=== PATIENT | male | born 1985 | race Two or more races ===

== ENCOUNTER 2017-05-31 09:48 | Emergency (ER) | payer SELFPAY ==
[2017-05-31 09:55] VITALS: RESP 18
--- NOTE | 2017-05-31 10:01 | CPEKG ---
Heart Rate: 112 RR Interval: 536 P-R Interval: 144 QRSD Interval: 112 QT Interval: 360 QTC Interval: 492 P [place]: 34 QRS [place]: 60 T Wave [place]: 11 EKG Severity - ABNORMAL ECG - EKG Impression: SINUS TACHYCARDIA EKG Impression: NONSPECIFIC INTRAVENTRICULAR CONDUCTION DELAY Electronically Signed By: Jemma Su 31-May-2017 15:06:50
--- NOTE | 2017-05-31 10:04 | EDPHY ---
H & P Stated Complaint: l cp since last night Time Seen by Provider: 05/31/17 10:02 HPI/ROS: HPI: This is a 32-year-old male presents with Chief Complaint: left cp since last night Location: Epigastric, left upper quadrant, left lateral anterior chest Quality: Pain Duration: Since 1:00 a.m. this morning Signs and Symptoms: no shortness of breath at rest, no shortness of breath on exertion, no cough, + chest pain, no palpitations, no lower extremity edema, no wheezing, no orthopnea, no paroxysmal nocturnal dyspnea, no fever, no injury/ trauma, no hemoptysis, + sweating, + nausea, no vomiting, no diarrhea Timing: Sudden, constant Severity: 710 Context: Patient is a former smoker, generally healthy and does not take regular medications, reports that he was tossing and turning last night and woke up around 1:00 a.m. with burning sensation in his epigastric/left upper quadrant/left lateral anterior chest area, that was 7/10, nonradiating in nature , and has remained constant for the last 8 hr. It is accompanied by cardiac awareness, anxiety, nausea, and sweating. Patient denies any recent long distance travel. He does report some anxiety history and increased stress. Due to this he drinks several beers last night but did not eat any dinner. No prior cardiac history. Denies familial cardiac disease. He denies NSAID use and food sensitivity to spicy or fried. Right-hand dominant. Denies any heavy lifting/injury. Modifying Factors: None Comment: ROS: see HPI Constitutional: No fever, no chills, no weight loss Eyes: No blurred vision Respiratory: No shortness of breath, no cough Cardiovascular: + chest pain, no palpitations, no lower extremity edema Gastrointestinal: + nausea, no vomiting, no diarrhea Genitourinary: No dysuria Extremities: No myalgias Neurologic: No weakness, no numbness Skin: No rashes Hematologic: No bruising, no bleeding MEDICAL/SURGICAL/SOCIAL HISTORY: Medical history: Generally healthy. Does not take any regular medications. Surgical history: Denies Social history: Employed. CONSTITUTIONAL: Anxious adult male, nontoxic in appearance and calm and cooperative, awake and alert, no obvious distress HEENT: Atraumatic and normocephalic, PERRL, EOMI. Tympanic membranes clear. Oropharynx clear, no exudate and moist pink mucosa. Airway patent. No lymphadenopathy. No meningismus. Cardiovascular: Normal S1/S2, sinus tachycardia, regular rhythm, without murmur rub or gallop. PULMONARY/CHEST: Symmetrical and reproducible anterior chest tenderness. Clear to auscultation bilaterally. Good air movement. No accessory muscle usage. ABDOMEN: Soft, nondistended, protuberant, epigastric and left upper quadrant tenderness, no rebound, no guarding, no peritoneal signs, no masses or organomegaly. No CVAT. EXTREMITIES: 2/2 pulses, strength 5/5, no deformities, no clubbing, no cyanosis or edema. NEUROLOGICAL: no focal neuro deficits. GCS 15. SKIN: Warm and dry, no erythema. no rash. Good capillary refill. Source: Patient Exam Limitations: No limitations - Personal History Current Tetanus/Diphtheria Vaccine: No - Medical/Surgical History Hx Asthma: No Hx Chronic Respiratory Disease: No Hx Diabetes: No Hx Cardiac Disease: No Hx Renal Disease: No Hx Cirrhosis: No Hx Alcoholism: No Hx HIV/AIDS: No Hx Splenectomy or Spleen Trauma: No Other PMH: denies - Social History Smoking Status: Former smoker Constitutional: Initial Vital Signs Temperature (C) 36.5 C 05/31/17 09:53 Heart Rate 98 05/31/17 09:53 Respiratory Rate 18 05/31/17 09:53 Blood Pressure 158/103 H 05/31/17 09:53 O2 Sat (%) 96 05/31/17 09:53 O2 Delivery Mode Room Air Allergies/Adverse Reactions: No Known Allergies Allergy (Unverified 05/31/17 09:52) Home Medications: Medication Instructions Recorded Pantoprazole Sodium [Protonix 40mg 40 mg PO DAILY #20 tab 05/31/17 (*)] Sucralfate [Carafate 1 GM (*)] 1 gm PO ACHS #28 tab 05/31/17 Medical Decision Making - Diagnostics EKG Interpretation: 12 lead EKG: Indication: Chest pain, abdominal pain Rhythm: Sinus tachycardia, rate 112 beats per minute [place]: Normal Intervals: Normal QRS: Normal ST segments: Normal INTERPRETATION: No acute ischemic changes The 12 lead EKG was interpreted by myself and with attending. Imaging Results: Imaging Impressions Abdomen X-Ray 05/31/17 10:03 Impression: No localizing features within the chest or abdomen. ED Course/Re-evaluation: EKG, acute abdomen series, IV fluids, labs ordered Vital signs reviewed upon arrival in show tachycardia; given 1 L normal saline and IV morphine with moderate relief of pain EKG shows no acute ischemic changes or arrhythmia Labs reviewed and show no signs of PE/ACS/anemia/electrolyte imbalance/elevated LFTs Chest x-ray my read shows no signs of effusion, opacity, pneumothorax, widened mediastinum Abdominal x-ray shows no signs of obstruction; does show nonobstructive bowel gas pattern mode over prominent in the left upper quadrant which is the area of discomfort for patient. 1245: Patient reports transient relief of symptoms with Ativan. Patient now admits to drinking consistently between 6 and 10 beers daily. He denies any alcohol withdrawal seizures. Offer to discharge him to the [facility] but he has politely refused. Sec troponin within normal limits. It appears that patient is suffering from alcoholic gastritis. This patient was seen under the supervision of my secondary supervising physician. I evaluated care for this patient independently. Differential Diagnosis: Chest pain including but not limited to myocardial ischemia, pulmonary embolus, chest wall pain, pleural inflammation and pulmonary infectious causes. - Data Points Laboratory Results: Laboratory Results 05/31/17 10:02 05/31/17 10:02 05/31/17 05/31/17 05/31/17 12:59 10:02 10:02 WBC RBC Hgb Hct MCV MCH MCHC RDW Plt Count MPV Neut % (Auto) Lymph % (Auto) [place] % (Auto) Eos % (Auto) Baso % (Auto) Nucleat RBC Rel Count Absolute Neuts (auto) Absolute Lymphs (auto) Absolute Monos (auto) Absolute Eos (auto) Absolute Basos (auto) Absolute Nucleated RBC Immature Gran % Immature Gran # D-Dimer < 0.27 ug/mLFEU ug/mLFEU (0.00-0.50) Sodium 145 mEq/L mEq/L (135-145) Potassium 3.7 mEq/L mEq/L (3.5-5.2) Chloride 101 mEq/L mEq/L (97-110) Carbon Dioxide 21 mEq/l L mEq/l (22-31) Anion Gap 23 mEq/L H mEq/L (8-16) BUN 10 mg/dL mg/dL (7-23) Creatinine 0.8 mg/dL mg/dL (0.7-1.3) Estimated GFR > 60 Glucose 118 mg/dL H mg/dL (70-100) Calcium 10.5 mg/dL H mg/dL (8.5-10.4) Troponin I < 0.012 ng/mL ng/mL < 0.012 ng/mL ng/mL (0.000-0.034) (0.000-0.034) 05/31/17 10:02 WBC 7.64 10^3/uL 10^3/uL (3.80-9.50) RBC 4.98 10^6/uL 10^6/uL (4.40-6.38) Hgb 15.7 g/dL g/dL (13.7-17.5) Hct 44.3 % % (40.0-51.0) MCV 89.0 fL fL (81.5-99.8) MCH 31.5 pg pg (27.9-34.1) MCHC 35.4 g/dL g/dL (32.4-36.7) RDW 11.8 % % (11.5-15.2) Plt Count 276 10^3/uL 10^3/uL (150-400) MPV 9.0 fL fL (8.7-11.7) Neut % (Auto) 62.1 % % (39.3-74.2) Lymph % (Auto) 28.4 % % (15.0-45.0) [place] % (Auto) 8.5 % % (4.5-13.0) Eos % (Auto) 0.3 % L % (0.6-7.6) Baso % (Auto) 0.4 % % (0.3-1.7) Nucleat RBC Rel Count 0.0 % % (0.0-0.2) Absolute Neuts (auto) 4.75 10^3/uL 10^3/uL (1.70-6.50) Absolute Lymphs (auto) 2.17 10^3/uL 10^3/uL (1.00-3.00) Absolute Monos (auto) 0.65 10^3/uL 10^3/uL (0.30-0.80) Absolute Eos (auto) 0.02 10^3/uL L 10^3/uL (0.03-0.40) Absolute Basos (auto) 0.03 10^3/uL 10^3/uL (0.02-0.10) Absolute Nucleated RBC 0.00 10^3/uL 10^3/uL (0-0.01) Immature Gran % 0.3 % % (0.0-1.1) Immature Gran # 0.02 10^3/uL 10^3/uL (0.00-0.10) D-Dimer Sodium Potassium Chloride Carbon Dioxide Anion Gap BUN Creatinine Estimated GFR Glucose Calcium Troponin I Medications Given: Discontinued Medications Al Hydroxide/Mg Hydroxide (Maalox Susp) 30 ml PO ONCE ONE Stop: 05/31/17 10:46 Last Admin: 05/31/17 10:50 Dose: 30 ml Hyoscyamine Sulfate (Levsin, Hyomax-Sl) 0.25 mg PO ONCE ONE Stop: 05/31/17 10:46 Last Admin: 05/31/17 10:50 Dose: 0.25 mg Sodium Chloride (Ns) 1,000 mls @ 0 mls/hr IV EDNOW ONE; Wide Open PRN Reason: Protocol Stop: 05/31/17 10:10 Last Admin: 05/31/17 10:50 Dose: 1,000 mls Lidocaine (Lidocaine 2% Viscous) 15 ml PO ONCE ONE Stop: 05/31/17 10:46 Last Admin: 05/31/17 10:50 Dose: 15 ml Lorazepam (Ativan Injection) 1 mg IVP EDNOW ONE Stop: 05/31/17 10:46 Last Admin: 05/31/17 10:51 Dose: 1 mg Lorazepam (Ativan Injection) 2 mg IVP EDNOW ONE Stop: 05/31/17 13:07 Last Admin: 05/31/17 13:10 Dose: 2 mg Departure - Departure Disposition: Home, Routine, Self-Care Clinical Impression: Alcoholism, Hypertension, essential, Atypical chest pain Alcoholic gastritis without bleeding Qualifiers: Chronicity: acute Qualified Code(s): K29.20 - Alcoholic gastritis without bleeding Condition: Good Instructions: Gastritis (ED), Abuse of Alcohol (ED), Alcohol Dependence (ED) Additional Instructions: Please start taking Protonix daily and Carafate 30 min before meals and at bedtime x1 week. Refrain from drinking alcohol. Your blood pressure is elevated today; eat a low-sodium diet. Please follow up with primary care provider in the next 2-3 days to discuss gastritis and elevated blood pressure. You may need to start blood pressure medication for tighter blood pressure control. Referrals: Julio Lunsford MD, FACG [Medical Doctor] - As per Instructions [facility],. [Clinic] - As per Instructions Prescriptions: Pantoprazole Sodium [Protonix 40mg (*)] 40 mg PO DAILY #20 tab Sucralfate [Carafate 1 GM (*)] 1 gm PO ACHS #28 tab
[2017-05-31] MEDS ORDERED: NS 1,000 ML IV ONE (10:09)
[2017-05-31 10:13] LABS: PLATELET COUNT 276 10^3/uL (150-400)
[2017-05-31] MEDS ORDERED: MAG HYDROX/AL HYDROX/SIMETH 30 ML UDCUP PO ONE (10:45)
[2017-05-31] MEDS ORDERED: LORazepam 2 MG/ML INJ IVP ONE ×2 (10:45→13:06)
[2017-05-31] MEDS ORDERED: HYOSCYAMINE SULFATE 0.125 MG TAB PO ONE (10:45)
[2017-05-31] MEDS ORDERED: LIDOCAINE 2% VISCOUS 15 ML UDCUP PO ONE (10:45)
[2017-05-31 14:10] VITALS: BP 159/78; PULSE 106; TEMP 98.1; O2SAT 94
== END 2017-05-31 14:10 | disposition home or self-care (01) ==
DX: K29.20 Alcoholic gastritis without bleeding (principal); R07.89 Other chest pain; I10 Essential (primary) hypertension; E86.9 Volume depletion, unspecified; Z87.891 Personal history of nicotine dependence
CPT/HCPCS: 96374; J2060

== ENCOUNTER 2017-07-02 14:16 | Emergency (ER) | payer SELFPAY ==
[2017-07-02 14:21] VITALS: RESP 16; O2SAT 96
--- NOTE | 2017-07-02 14:36 | CPEKG ---
Heart Rate: 99 RR Interval: 606 P-R Interval: 136 QRSD Interval: 108 QT Interval: 368 QTC Interval: 473 P [place]: 48 QRS [place]: 72 T Wave [place]: 19 EKG Severity - BORDERLINE ECG - EKG Impression: SINUS RHYTHM EKG Impression: BORDERLINE PROLONGED QT INTERVAL Electronically Signed By: Иван Sue 02-Jul-2017 14:48:11
[2017-07-02] MEDS ORDERED: ASPIRIN 81 MG CHEWABLE TAB PO ONE (14:44)
[2017-07-02] MEDS ORDERED: ACETAMINOPHEN 325 MG TAB PO ONE (14:45)
--- NOTE | 2017-07-02 14:48 | EDPHY ---
H & P Time Seen by Provider: 07/02/17 14:32 HPI/ROS: CHIEF COMPLAINT: Chest pain HISTORY OF PRESENT ILLNESS: Patient was seen in our emergency department on with similar symptoms. He says he has been having the symptoms every day on and off for the last month. Today he did not wake up with symptoms but it started at 1:00 p.m. 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 Says sometimes the symptoms started when he is lying on the couch watching TV. Today he feels that it is cramping in his left side of his chest which radiates to his left arm and associated with nausea and diaphoresis and still present on arrival. Not associated with cough or hemoptysis or leg swelling. Not better worse with respiration or exertion. Little bit better with certain positions and a little bit worse with others. Symptoms described as moderate. REVIEW OF SYSTEMS: Eye: no change in vision ENT: no sore throat Cardiac: HPI Pulmonary: no cough or SOB Abdomen: no vomiting, diarrhea, abdominal pain Musculoskeletal: no back pain Skin: no rash Neuro: no headache Constitutional: no fever : no urinary symptoms A comprehensive 10 point review of systems is otherwise negative aside from elements mentioned in the history of present illness. PAST MEDICAL HISTORY: Negative for diabetes hypertension or hypercholesterolemia. Family history: Negative for premature coronary disease or venous thromboembolism. Social history: Negative for tobacco smoking or cocaine or other drugs. No recent travel or immobilization. General Appearance: Alert and conversant, cooperative. Eyes: No scleral icterus. ENT, Mouth: Normal mucous membranes. Respiratory: Normal respiratory effort, breath sounds equal, lungs are clear to auscultation. Cardiovascular: Regular rate and rhythm. Gastrointestinal: Abdomen is soft and non tender. Neurological: Alert, face symmetric, normal motor and sensory in extremities. Skin: Warm and dry, no rashes. Musculoskeletal: No peripheral edema. No calf tenderness. I can reproduce his symptoms by pressing on his left chest wall just below his nipple. Psychiatric: Mildly Anxious. Emergency Department course/MDM: Oral aspirin and oral acetaminophen. Initial EKG is nonischemic. Low overall suspicion for ACS or pulmonary embolism. Labs to include troponin and D-dimer, chest x-ray ordered. 1545: Labs reviewed including negative troponin and D-dimer. Has a very low risk by heart score. Likely noncardiac or venous thromboembolic chest pain. 1554: Results discussed, feels a little bit better, oral ibuprofen and discharge with outpatient follow-up. Smoking Status: Former smoker Constitutional: Initial Vital Signs Temperature (C) 36.7 C 07/02/17 14:19 Heart Rate 107 H 07/02/17 14:19 Respiratory Rate 16 07/02/17 14:19 Blood Pressure 145/98 H 07/02/17 14:19 O2 Sat (%) 96 07/02/17 14:19 O2 Delivery Mode Room Air Allergies/Adverse Reactions: No Known Allergies Allergy (Unverified 07/02/17 14:19) Medical Decision Making - Diagnostics EKG Interpretation: 12-lead EKG interpreted by me; official reading is in trace master. My interpretation is sinus rhythm with borderline prolonged QT but no acute ischemic changes. Imaging Results: Imaging Impressions Chest X-Ray 07/02/17 14:44 Impression: No acute abnormality. Chest x-ray personally interpreted is negative. Imaging: I viewed and interpreted images myself Differential Diagnosis: Differential diagnosis considered for chest pain including but not limited to myocardial ischemia, aortic dissection, pericarditis, pulmonary embolus, chest wall pain, pleural inflammation and pulmonary infectious causes. - Data Points Laboratory Results: Laboratory Results 07/02/17 14:40 07/02/17 14:40 07/02/17 07/02/17 07/02/17 14:40 14:40 14:40 WBC 4.27 10^3/uL 10^3/uL (3.80-9.50) RBC 5.01 10^6/uL 10^6/uL (4.40-6.38) Hgb 15.6 g/dL g/dL (13.7-17.5) Hct 45.2 % % (40.0-51.0) MCV 90.2 fL fL (81.5-99.8) MCH 31.1 pg pg (27.9-34.1) MCHC 34.5 g/dL g/dL (32.4-36.7) RDW 12.0 % % (11.5-15.2) Plt Count 284 10^3/uL 10^3/uL (150-400) MPV 9.1 fL fL (8.7-11.7) Neut % (Auto) 50.6 % % (39.3-74.2) Lymph % (Auto) 36.8 % % (15.0-45.0) [place] % (Auto) 10.3 % % (4.5-13.0) Eos % (Auto) 1.4 % % (0.6-7.6) Baso % (Auto) 0.7 % % (0.3-1.7) Nucleat RBC Rel Count 0.0 % % (0.0-0.2) Absolute Neuts (auto) 2.16 10^3/uL 10^3/uL (1.70-6.50) Absolute Lymphs (auto) 1.57 10^3/uL 10^3/uL (1.00-3.00) Absolute Monos (auto) 0.44 10^3/uL 10^3/uL (0.30-0.80) Absolute Eos (auto) 0.06 10^3/uL 10^3/uL (0.03-0.40) Absolute Basos (auto) 0.03 10^3/uL 10^3/uL (0.02-0.10) Absolute Nucleated RBC 0.00 10^3/uL 10^3/uL (0-0.01) Immature Gran % 0.2 % % (0.0-1.1) Immature Gran # 0.01 10^3/uL 10^3/uL (0.00-0.10) D-Dimer < 0.27 ug/mLFEU ug/mLFEU (0.00-0.50) Sodium 145 mEq/L mEq/L (135-145) Potassium 4.6 mEq/L mEq/L (3.5-5.2) Chloride 105 mEq/L mEq/L (97-110) Carbon Dioxide 20 mEq/l L mEq/l (22-31) Anion Gap 20 mEq/L H mEq/L (8-16) BUN 12 mg/dL mg/dL (7-23) Creatinine 0.8 mg/dL mg/dL (0.7-1.3) Estimated GFR > 60 Glucose 120 mg/dL H mg/dL (70-100) Calcium 10.6 mg/dL H mg/dL (8.5-10.4) Troponin I < 0.012 ng/mL ng/mL (0.000-0.034) Medications Given: Discontinued Medications Acetaminophen (Tylenol) 650 mg PO EDNOW ONE Stop: 07/02/17 14:46 Last Admin: 07/02/17 14:57 Dose: 650 mg Aspirin (Aspirin) 324 mg PO EDNOW ONE Stop: 07/02/17 14:45 Last Admin: 07/02/17 14:57 Dose: 324 mg Ibuprofen (Motrin) 600 mg PO EDNOW ONE Stop: 07/02/17 15:49 Last Admin: 07/02/17 15:59 Dose: 600 mg Departure - Departure Disposition: Home, Routine, Self-Care Clinical Impression: Chest pain Qualifiers: Chest pain type: unspecified Qualified Code(s): R07.9 - Chest pain, unspecified Condition: Good Instructions: Chest Pain (ED) Referrals: Markus Aguirre MD [Medical Doctor] - As per Instructions Marilyn Jansen MD [[facility] Primary Care Provider] - As per Instructions
[2017-07-02 14:51] LABS: PLATELET COUNT 284 10^3/uL (150-400)
[2017-07-02] MEDS ORDERED: IBUPROFEN 600 MG TAB PO ONE (15:48)
[2017-07-02 16:08] VITALS: BP 117/77; PULSE 86; TEMP 98.2
== END 2017-07-02 16:08 | disposition home or self-care (01) ==
DX: R07.9 Chest pain, unspecified (principal); Z87.891 Personal history of nicotine dependence